=== PATIENT | female | born 1975 | race Caucasian/White ===

== ENCOUNTER → 2023-06-08 | Day surgery (SDC) | payer OTHER | END | disposition home or self-care (01) | LOC: JRADUS-SUR 10:39 | PROVIDERS: ATTEND Internal Medicine | PROC: 0H9U3ZX Drainage of Left Breast, Percutaneous Approach, Diagnostic (ICD-10-PCS; principal; 2023-06-08) | DX: N60.02 Solitary cyst of left breast (principal) | CPT/HCPCS: 19000; 76942-TC; 87899 ==

== ENCOUNTER → 2024-09-19 | Day surgery (SDC) | payer OTHER | END | disposition home or self-care (01) | LOC: JRADUS-SUR 11:44 | PROVIDERS: ATTEND Internal Medicine | PROC: 0H9U3ZX Drainage of Left Breast, Percutaneous Approach, Diagnostic (ICD-10-PCS; principal; 2024-09-19) | DX: N60.02 Solitary cyst of left breast (principal) | CPT/HCPCS: 19000; 76942-TC; 88173; 88305-TC ==